=== PATIENT | male | born 1955 | race Caucasian/White ===

== ENCOUNTER 2018-09-19 09:24 | Observation (INO) | payer OTHER ==
--- OUTSIDE RECORDS SUMMARY | 2018-09-19 09:52 | XMS REPORT ---
:1955 Author Organization [facility] Address [address] [place] [address] [address] [place] [address] Care Team Providers Name Role Phone Unavailable Unavailable Unavailable Problems This patient has no known problems. Allergies, Adverse Reactions, Alerts This patient has no known allergies or adverse reactions. Medications This patient has no known medications.
[2018-09-19 10:08] LABS: Absolute Lymphocytes (CBC) 1.1 K/uL (0.7-4.9); Basophils % 0.2 % (0-1.3); Lymphocytes % 6.6 % (15.3-44.8); MPV 9.3 fL (7.6-11.3); Monocytes % 3.9 % (3.3-12.3); RBC Red Blood Cell Count 6.25 M/uL (4.33-5.43)
[2018-09-19 10:24] LABS: ALT/SGPT 58 U/L (12-78); AST/SGOT 37 U/L (15-37); Albumin 5.3 g/dL (3.4-5.0); Alkaline Phosphatase 126 U/L (45-117); BUN Blood Urea Nitrogen 21 mg/dL (7-18); Bicarbonate 31 mmol/L (21-32); Bilirubin Total 1.1 mg/dL (0.2-1.0); Glucose Level 126 mg/dL (74-106); Lipase 102 U/L (73-393); Magnesium 2.8 mg/dL (1.8-2.4); NT PRO-BNP 242 pg/mL (<125); Potassium 3.6 mmol/L (3.5-5.1); Protein, Total 10.8 g/dL (6.4-8.2); Sodium Level 139 mmol/L (136-145); Troponin (Emerg Dept Use Only) < 0.02 ng/mL (0.0-0.045)
[2018-09-19 11:25] LABS: Blood Morphology Comment NOT SEEN (NOT SEEN); Platelet Estimate ADEQ; Urine White Blood Cell Casts OK
--- NOTE | 2018-09-19 11:49 | RAD REPORT ---
EXAM DESCRIPTION: RAD - Chest Single View - 09/19/2018 11:30 am CLINICAL HISTORY: Cough, shortness of breath COMPARISON: CT imaging August 2010 TECHNIQUE: AP portable chest image was obtained 1124 hours . FINDINGS: Fibrotic lung changes are present. Moderately large bolus Kathi present in the left apex s imilar to the 2011 study. Focal scarring in the right apex is present. Patient has a right-sided Port -A-Cath in place. No focal infiltrate, mass or failure finding. Heart and vasculature are normal. No measurable pleural effusion and no pneumothorax. No acute bony abnormality seen. No acute aortic findings suspected. IMPRESSION: Fibrotic and obstructive lung changes are present. No acute cardiopulmonary finding seen.
--- NOTE | 2018-09-19 12:49 | EKG ---
Test Date: 2018-09-19 Test Time: 09:35:31 Clam Bed Laborer: JENNIFER MEASUREMENT RESULTS: Intervals: Rate: 112 MI: 148 QRSD: 90 QT: 326 QTc: 444 [place]: P: 79 MI: 148 QRS: 80 T: 76 INTERPRETIVE STATEMENTS: Sinus tachycardia Otherwise normal ECG No previous ECG available for comparison Electronically Signed On 09-19-18 12:47:57 CDT by Alexis Holland
[2018-09-19] MEDS ORDERED: ONDANSETRON 4 MG/2 ML VIAL ONE ×2 (13:08→14:52)
--- NOTE | 2018-09-19 14:04 | RAD REPORT ---
EXAM DESCRIPTION: CT - Chest For Pe Angio - 09/19/2018 1:28 pm CLINICAL HISTORY: Progressive shortness of breath, metastatic lung carcinoma, dyspnea COMPARISON: Portable chest September 19, CT chest trauma gram August 2010 TECHNIQUE: Dynamically enhanced 3 mm thick images of the chest were obtained during administration o f approximately 150mL Isovue 370 IV contrast. Coronal and oblique MIP reconstruction images were gene rated and reviewed. Exam utilizes a protocol to evaluate the pulmonary arterial tree. All CT scans are performed using dose optimization technique as appropriate and may include automated exposure control or mA/KV adjustment according to patient size. FINDINGS: No pulmonary emboli are identified. The aorta as imaged shows no acute or suspicious finding. No pericardial thickening or effusion. No acute infiltrate. Patient has prominent emphysema changes present. There is a large 9 centimeter d iameter air-filled bullous cavity in the left apex. There are numerous additional subpleural bulla an d bleb in the mid and upper lung arreaga. No pneumothorax or pleural effusion. An 8 mm nodule is prese nt in the posterior gutter on the left. Small calcified nodule is seen in the lateral lower left lung field. Focal pleural abutting 2.7 centimeter spiculated mass in the posterior right apex is present. This may be residual or remnant tumor given the history of lung carcinoma. No recent comparison avai lable. There is a small 8 mm spiculated density in the right upper lung field (image 42/104). No mediastinal or hilar suspicious masses. No chest wall masses or abnormal axillary lymphadenopathy. No pericardial thickening or effusion. No vertebral body compression fracture. Scattered areas of sclerotic change present in the midthoraci c spine. IMPRESSION: No pulmonary emboli identified. Approximately 2.7 cm spiculated mass in the posterior right apex. No recent comparison is available. This may be residual or remnant tumor given the provided history of lung cancer. Extensive underlying emphysema changes present. Numerous bullae and blebs are seen in the mid and upp er lung arreaga including 9 centimeter cystic bullous cavity in the left apex. Few small lung parenchymal mass densities are present the can be monitored on subsequent imaging. The se are not likely of acute clinical significance.
[2018-09-19] MEDS ORDERED: CEFTRIAXONE/SWI 1gm 1 GM/10 ML SYR ONE (14:41)
--- NOTE | 2018-09-19 14:45 | EDPHYS ---
Physician Documentation [facility] Name: Clive Delcid Age: 62 yrs Sex: Male : 1955 Arrival Date: 09/19/2018 Time: 09:26 Bed 7 Private MD: ED Physician Cl Jarvis HPI: 09/19 09:39 This 62 yrs old Male presents to ER via EMS with complaints of Shortness Of ps1 Breath, General Weakness. 09:39 patient has a history of lung CA with mets to brain. BIBEMS for SHAINA. Appears to be NAD ps1 at this time. Previous chemo/rads, now palliative. Had decrease in morphine administration over last couple of months. Family member states that he has had more incidents of discomfort with breathing since decrease. Has ONC follow up in 3 days. No fever. Has increased fatigue.. Historical: - Allergies: 09:30 No Known Allergies; sg - PMHx: 09:30 Lung Cancer; sg 09:37 Hepatitis; sg - Immunization history:: Adult Immunizations up to date. - Social history:: Smoking status: Patient/guardian denies using tobacco, but has a distant history of tobacco abuse. - Ebola Screening: : Patient negative for fever greater than or equal to 101.5 degrees Fahrenheit, and additional compatible Ebola Virus Disease symptoms Patient denies exposure to infectious person Patient denies travel to an Ebola-affected area in the 21 days before illness onset No symptoms or risks identified at this time. ROS: 09:39 Constitutional: Negative for fever, chills, and weight loss, Eyes: Negative for injury, ps1 pain, redness, and discharge, Abdomen/GI: Negative for abdominal pain, nausea, vomiting, diarrhea, and constipation, Skin: Negative for injury, rash, and discoloration, Neuro: Negative for headache, weakness, numbness, tingling, and seizure, Psych: Negative for depression, anxiety, suicide ideation, homicidal ideation, and hallucinations. 09:39 Cardiovascular: Negative for chest pain, palpitations. 09:39 Respiratory: Positive for cough, dyspnea on exertion, shortness of breath. Exam: 09:39 Constitutional: This is a well developed, well nourished patient who is awake, alert, ps1 and in no acute distress. Head/Face: Normocephalic, atraumatic. Chest/axilla: Normal chest wall appearance and motion. Nontender with no deformity. No lesions are appreciated. Cardiovascular: Regular rate and rhythm. No gallops, murmurs, or rubs. Normal PMI, no JVD. No pulse deficits. Respiratory: Lungs have equal breath sounds bilaterally, clear to auscultation and percussion. No rales, rhonchi or wheezes noted. No increased work of breathing, no retractions or nasal flaring. Abdomen/GI: Soft, non-tender, with normal bowel sounds. No distension or tympany. No guarding or rebound. No evidence of tenderness throughout. MS/ Extremity: Pulses equal, no cyanosis. Neurovascular intact. Full, normal range of motion. Neuro: Awake and alert, GCS 15, oriented to person, place, time, and situation. Cranial nerves II-XII grossly intact. Sensory grossly intact. Psych: Awake, alert, with orientation to person, place and time. Behavior, mood, and affect are within normal limits. Vital Signs: 09:28 BP 103 / 64; Pulse 101; Resp 18; Temp 97.9; Pulse Ox 94% on R/A; Pain 0/10; sg 10:30 BP 128 / 87; Pulse 103; Resp 18; Pulse Ox 98% ; sv 12:07 BP 103 / 64; Pulse 106; Resp 18; Pulse Ox 96% ; sv 13:00 BP 112 / 72; Pulse 105; Resp 19; Pulse Ox 96% ; sv 14:00 BP 162 / 99; Pulse 99; Resp 16; Pulse Ox 94% ; sv 15:00 BP 125 / 92; Pulse 112; Resp 18; Pulse Ox 97% ; sv 16:18 BP 108 / 59; Pulse 111; Resp 16; Pulse Ox 97% ; sv 17:56 BP 144 / 98; Pulse 105; Resp 16; Pulse Ox 98% ; sv MDM: 10:29 Patient medically screened. 09/19 09:38 Order name: Blood Culture Adult (2) 09/19 09:38 Order name: CBC with Diff 09/19 09:38 Order name: Lipase 09/19 09:38 Order name: Magnesium; Complete Time: 11:12 09/19 09:38 Order name: NT PRO-BNP; Complete Time: 11:12 09/19 09:38 Order name: Troponin (emerg Dept Use Only); Complete Time: 11:12 09/19 09:38 Order name: CMP; Complete Time: 11:12 ps1 09/19 09:39 Order name: Blood Culture EDMS 09/19 09:40 Order name: CBC with Automated Diff; Complete Time: 12:14 EDMS 09/19 09:40 Order name: Lipase; Complete Time: 11:12 EDMS 09/19 11:26 Order name: CBC Smear Scan; Complete Time: 12:14 EDMS 09/19 14:17 Order name: Lactate ps1 09/19 14:17 Order name: Procalcitonin; Complete Time: 16:23 ps1 09/19 14:18 Order name: Lactate; Complete Time: 16:23 EDMS 09/19 09:36 Order name: EKG; Complete Time: 09:36 sg 09/19 09:38 Order name: Cardiac monitoring; Complete Time: 09:42 ps1 09/19 09:38 Order name: EKG - Nurse/Tech; Complete Time: 09:42 ps1 09/19 09:38 Order name: IV Saline Lock; Complete Time: 09:59 ps1 09/19 09:38 Order name: Labs collected and sent; Complete Time: 09:59 ps1 09/19 09:38 Order name: O2 Per Protocol; Complete Time: 09:42 ps1 09/19 09:38 Order name: O2 Sat Monitoring; Complete Time: 09:42 ps1 09/19 11:14 Order name: CXR XRAY; Complete Time: 12:14 ps1 09/19 13:06 Order name: CT Chest For PE Angio; Complete Time: 14:11 ps1 09/19 18:07 Order name: Lactate Sepsis 2 HR Follow-up; Complete Time: 18:18 EDMS Administered Medications: 12:14 Drug: DuoNeb (3:1) (2.5 mg - 0.5 mg) 3 ml Route: Nebulizer; sv 13:08 Follow up: Response: No adverse reaction sv 12:14 Drug: SOLU-Medrol 125 mg Route: IVP; Site: right forearm; sv 13:08 Follow up: Response: No adverse reaction sv 13:08 Drug: Zofran 4 mg Route: IVP; Site: right forearm; sv 13:30 Follow up: Response: No adverse reaction sv 14:35 Drug: Rocephin - (cefTRIAXone) 1 grams Route: IVPB; Infused Over: 30 mins; Site: right sv forearm; 14:37 Follow up: Response: No adverse reaction; IV Status: Completed infusion; IV Intake: 10mlsv 14:44 Drug: Zofran 4 mg Route: IVP; Site: right forearm; sv 15:00 Follow up: Response: No adverse reaction sv Disposition: 09/19/18 14:45 Hospitalization ordered by Huang Hurst for Observation. Preliminary diagnosis are Shortness of breath\E\, COPD exacerbation, Lung CA, Dehydration. - Bed requested for Telemetry/MedSurg (observation). - Status is Observation. sv - Condition is Stable. - Problem is an acute exacerbation. - Symptoms have improved. UTI on Admission? No Signatures: Dispatcher [employer] EDMS Angi Blount RN Felicity Juan RN RN dw Gay, Steven, RN RN sg Singer, Phillip, MD MD ps1 Corrections: (The following items were deleted from the chart) 17:49 14:45 Hospitalization Ordered by Huang Hurst DO for Observation. Preliminary diagnosis is Shortness of breath\E\; COPD exacerbation; Lung CA; Dehydration. Bed requested for Telemetry/MedSurg (observation). Status is Observation. Condition is Stable. Problem is an acute exacerbation. Symptoms have improved. UTI on Admission? No. ps1 18:37 17:49 09/19/2018 14:45 Hospitalization Ordered by Huang Hurst DO for Observation. sv Preliminary diagnosis is Shortness of breath\E\; COPD exacerbation; Lung CA; Dehydration. Bed requested for Telemetry/MedSurg (observation). Status is Observation. Condition is Stable. Problem is an acute exacerbation. Symptoms have improved. UTI on Admission? No. dw
--- NOTE | 2018-09-19 14:45 | ER ---
Nurse's Notes [facility] Name: Clive Delcid Age: 62 yrs Sex: Male : 1955 Arrival Date: 09/19/2018 Time: 09:26 Bed 7 Private MD: Diagnosis: Shortness of breath\E\;COPD exacerbation;Lung CA;Dehydration Presentation: 09/19 09:26 Presenting complaint: EMS states: pt daughter called for pt having increased shortness sg of breath, reports having a hx of lung cancer with mets throughout the body. pt daughter also reports the pt being weak for the last couple of days, pt is currently on hospice. denies N/V/D/Fever at this time. Transition of care: patient was not received from another setting of care. Onset of symptoms was September 19, 2018. Risk Assessment: Do you want to hurt yourself or someone else? Patient reports no desire to harm self or others. Initial Sepsis Screen: Does the patient meet any 2 criteria? HR > 90 bpm. Does the patient have a suspected source of infection? No. Patient's initial sepsis screen is negative. Care prior to arrival: Glucose check: 124. 09:26 Method Of Arrival: EMS: [facility] sg 09:26 Acuity: KIRBY 3 sg Historical: - Allergies: 09:30 No Known Allergies; sg - PMHx: 09:30 Lung Cancer; sg 09:37 Hepatitis; sg - Immunization history:: Adult Immunizations up to date. - Social history:: Smoking status: Patient/guardian denies using tobacco, but has a distant history of tobacco abuse. - Ebola Screening: : Patient negative for fever greater than or equal to 101.5 degrees Fahrenheit, and additional compatible Ebola Virus Disease symptoms Patient denies exposure to infectious person Patient denies travel to an Ebola-affected area in the 21 days before illness onset No symptoms or risks identified at this time. Screenin:35 Abuse screen: Denies threats or abuse. Denies injuries from another. Nutritional sg screening: No deficits noted. Tuberculosis screening: No symptoms or risk factors identified. Never had TB. Fall Risk None identified. Assessment: 09:38 General: Appears in no apparent distress. slender, well groomed, well developed, well sg nourished, Behavior is calm, cooperative, appropriate for age. Pain: Complains of pain in abdomen, body aches Quality of pain is described as aching. Neuro: Level of Consciousness is awake, alert, obeys commands, Oriented to person, place, time, Hot Air Furnace Installer Repairer are equal bilaterally Moves all extremities. Speech is normal, Facial symmetry appears normal. Cardiovascular: Heart tones S1 S2 present Capillary refill is brisk in bilateral fingers Patient's skin is warm and dry. Chest pain is denied. Cardiovascular: Rhythm is sinus tachycardia. Respiratory: Airway is patent Respiratory effort is even, unlabored, Respiratory pattern is regular, symmetrical, Breath sounds are coarse. GI: Abdomen is round non-distended, Reports abd pain. : No signs and/or symptoms were reported regarding the genitourinary system. EENT: No signs and/or symptoms were reported regarding the EENT system. Derm: Skin is normal, Skin temperature is warm. Musculoskeletal: No signs and/or symptoms reported regarding the musculoskeletal system. 09:38 Reassessment: a port a cath is noted in the anterior chest wall, site appears clean and sg dry with no drainage noted at this time. 12:14 Reassessment: Patient appears in no apparent distress at this time. No changes from sv previously documented assessment. Patient and/or family updated on plan of care and expected duration. Pain level reassessed. Patient is alert, oriented x 3, equal unlabored respirations, skin warm/dry/pink. 13:05 Reassessment: Patient appears in no apparent distress at this time. No changes from sv previously documented assessment. Patient and/or family updated on plan of care and expected duration. Pain level reassessed. Patient is alert, oriented x 3, equal unlabored respirations, skin warm/dry/pink. GI: Pt is actively vomiting bile, Reports nausea. 14:35 Reassessment: Patient appears in no apparent distress at this time. No changes from sv previously documented assessment. Patient and/or family updated on plan of care and expected duration. Pain level reassessed. Patient is alert, oriented x 3, equal unlabored respirations, skin warm/dry/pink. GI: Pt is actively vomiting bile, Reports nausea. 14:45 Reassessment: Patient appears in no apparent distress at this time. No changes from sv previously documented assessment. Patient and/or family updated on plan of care and expected duration. Pain level reassessed. Patient is alert, oriented x 3, equal unlabored respirations, skin warm/dry/pink. Dr Hurst at the bedside. Vital Signs: 09:28 BP 103 / 64; Pulse 101; Resp 18; Temp 97.9; Pulse Ox 94% on R/A; Pain 0/10; sg 10:30 BP 128 / 87; Pulse 103; Resp 18; Pulse Ox 98% ; sv 12:07 BP 103 / 64; Pulse 106; Resp 18; Pulse Ox 96% ; sv 13:00 BP 112 / 72; Pulse 105; Resp 19; Pulse Ox 96% ; sv 14:00 BP 162 / 99; Pulse 99; Resp 16; Pulse Ox 94% ; sv 15:00 BP 125 / 92; Pulse 112; Resp 18; Pulse Ox 97% ; sv 16:18 BP 108 / 59; Pulse 111; Resp 16; Pulse Ox 97% ; sv 17:56 BP 144 / 98; Pulse 105; Resp 16; Pulse Ox 98% ; sv ED Course: 09:26 Patient arrived in ED. sg 09:28 Triage completed. sg 09:28 Arm band placed on. sg 09:29 Cl Jarvis MD is Attending Physician. ps1 09:35 Patient has correct armband on for positive identification. Bed in low position. Call sg light in reach. Side rails up X2. Pulse ox on. NIBP on. Warm blanket given. Head of bed elevated. 09:36 Pepe Livingston, RN is Primary Nurse. sg 09:40 EKG done, by chemical research technician. reviewed by Cl Jarvis MD. at1 09:57 Initial lab(s) drawn, by me, sent to lab. First set of blood cultures drawn. Inserted ms saline lock: 20 gauge in right forearm, using aseptic technique. Blood collected. 11:30 X-ray completed. Portable x-ray completed in exam room. Patient tolerated procedure sw well. 11:31 CXR XRAY In Process Unspecified. EDMS 12:06 Second set of blood cultures drawn by me. ms 12:16 Blood Culture Adult (2) Sent. sv 12:16 CBC with Diff Sent. sv 12:16 Lipase Sent. sv 13:28 CT Chest For PE Angio In Process Unspecified. EDMS 14:35 Initial lab(s) drawn, by me, sent to lab. sv 14:36 Primary Nurse role handed off by Pepe Livingston, RN sv 14:36 Angi Blount, ANITA is Primary Nurse. sv 14:44 Huang Hurst DO is Hospitalizing Provider. ps1 14:46 Lactate Sent. sv 15:31 Assisted to bedside commode. sg 18:07 Notified ED physician of a critical lab result(s). Lactate 4.9. ak1 18:19 No provider procedures requiring assistance completed. Patient admitted, IV remains in sv place. intact. 19:00 Primary Nurse role handed off by Angi Blount RN sv Administered Medications: 12:14 Drug: DuoNeb (3:1) (2.5 mg - 0.5 mg) 3 ml Route: Nebulizer; sv 13:08 Follow up: Response: No adverse reaction sv 12:14 Drug: SOLU-Medrol 125 mg Route: IVP; Site: right forearm; sv 13:08 Follow up: Response: No adverse reaction sv 13:08 Drug: Zofran 4 mg Route: IVP; Site: right forearm; sv 13:30 Follow up: Response: No adverse reaction sv 14:35 Drug: Rocephin - (cefTRIAXone) 1 grams Route: IVPB; Infused Over: 30 mins; Site: right sv forearm; 14:37 Follow up: Response: No adverse reaction; IV Status: Completed infusion; IV Intake: 10mlsv 14:44 Drug: Zofran 4 mg Route: IVP; Site: right forearm; sv 15:00 Follow up: Response: No adverse reaction sv Intake: 14:37 IV: 10ml; Total: 10ml. sv Outcome: 14:45 Decision to Hospitalize by Provider. ps1 18:20 Admitted to Tele accompanied by tech, via wheelchair, room 209, Report called to jose Thompson RN 18:20 Condition: stable 18:20 Instructed on the need for admit. 18:37 Patient left the ED. Signatures: Dispatcher [employer] EDMS Angi Blount, Pepe Darling RN, RN Charlotte Soria ms, Amanda, wrist liner EKG Tat1 Bernie Smith, RN RN ak1 Neeta Valentin Phillip, MD MD ps1
--- NOTE | 2018-09-19 15:12 | P.HP ---
Certification for Inpatient Patient admitted to: Observation With expected LOS: <2 Midnights Patient will require the following post-hospital care: None Practitioner: I am a practitioner with admitting privileges, knowledge of patient current condition, hospital course, and medical plan of care. Services: Services provided to patient in accordance with Admission requirements found in Title 42 Section 412.3 of the Code of Federal Regulations Patient History Date of Service: 09/19/18 Primary Care Provider: Dr. Pastor; Palliative-Dr. Cardenas; Pain-Dr. Smith; Onco-Dr. Arguello Reason for admission: Fatigue, diarrhea History of Present Illness: 62-year-old male presented to emergency room with increased fatigue and diarrhea. Patient with underlying non small-cell lung cancer, chronic pain, hypothyroidism , and history of TIA. Patient had been out site recently. Patient was noticing increasing fatigue and diarrhea today. Mild shortness of breath was noted. He denied any fever, chills. Patient is seen at [facility] for all his care. He is seen by palliation DrArnulfo, Oncology and chronic pain management. In the ER patient was evaluated. White count elevated at 16. Patient BMP revealed acute renal injury. CT scan showed unchanged mass to the lung, several bulli, and no evidence of pulmonary embolism or pneumonia. Patient was given IV fluids in the emergency room. Patient was admitted for observation. When I saw the patient the ER, he appeared dehydrated. He was without any significant shortness of breath, fever, chills, chest pain. Patient reported that he had been outside mowing the grass. Daughter present at bedside. She reports that his pain doctor has been adjusting his chronic pain medication- morphine. Patient has received chemotherapy, immunotherapy and radiation in the past. He is being followed by Oncology closely. He apparently ran out of his chronic pain medication recently. He is a follow up in the next 2 days. Home medications list reviewed: Yes - Past Medical/Surgical History Diabetic: No -: Non-small cell lung cancer with mets -: COPD -: History TIA -: GERD -: Chronic pain -: Hypothyroidism -: Tobacco abuse -: Alcohol use Past Surgical History: Reviewed- Non-Contributory Psychosocial/ Personal History: Patient lives at home. - Family History Family History: Reviewed- Non-Contributory - Social History Smoking Status: Heavy Tobacco smoker (>10 cigarettes/day) Counseled patient to stop smoking for: less than 10 minutes Smoking therapy provided: Yes Patient receptive to therapy: Yes Alcohol use: Yes CD- Drugs: No Caffeine use: Yes Place of Residence: Home Review of Systems General: Weakness, Malaise, As per HPI Eyes: Unremarkable ENT: Unremarkable Respiratory: Shortness of Breath, As per HPI Cardiovascular: Unremarkable Gastrointestinal: Diarrhea, As per HPI Genitourinary: Unremarkable Musculoskeletal: Unremarkable Integumentary: Unremarkable Neurological: Unremarkable Lymphatics: Unremarkable Physical Examination - Physical Exam General: Alert, In no apparent distress, Oriented x3, Cooperative, Cachectic, Disheveled HEENT: Atraumatic, Normocephalic, Other Neck: Supple, No Thyromegaly Respiratory: Expiratory wheezes (Bilateral) Cardiovascular: Normal pulses, Regular rate/rhythm Gastrointestinal: Normal bowel sounds, Soft and benign, Non-distended, No tenderness, No masses, No rebound, No guarding Musculoskeletal: No erythema, No tenderness, No warmth Integumentary: No tenderness/swelling, No erythema, No warmth, No cyanosis Neurological: Normal speech, Normal strength at 5/5 x4 extr, Normal tone, Normal affect - Studies Laboratory Data (last 24 hrs) 09/19/18 09:56: Sodium 139, Potassium 3.6, BUN 21 H, Creatinine 1.90 H, Glucose 126 H, Magnesium 2.8 H, Total Bilirubin 1.1 H, AST 37, ALT 58, Alkaline Phosphatase 126 H, Lipase 102 09/19/18 09:56: WBC 16.1 H, Hgb 18.8 H, Hct 57.0 H, Plt Count 326 Assessment and Plan - Plan Impression: Fatigue, shortness of breath likely mild COPD exacerbation complicated with non- small-cell lung cancer Acute renal injury with dehydration Chronic pain Hypothyroidism GERD History TIA Plan: Fatigue, shortness of breath likely mild COPD exacerbation complicated with non- small-cell lung cancer: Patient will be admitted for observation. Will start oral steroid for COPD exacerbation.. Patient not taking any inhalers at home. Will start COPD medication-Brovana/albuterol/Atrovent. COPD medication will need to be continued at home at discharge. Room-air saturations within normal range. Will monitor this closely. Recheck chest x-ray tomorrow. Patient is seen by palliation along with oncology. Patient also to gets morphine for chronic pain. Patient recently ran out of medication. Follow up with pain management doctor this coming Wednesday. Anticipate discharge tomorrow with IV fluid hydration. Patient will need follow up with pain management on Wednesday. Patient will need to decrease activities at home. Acute renal injury with dehydration: Will provide IV fluids. Recheck lab tomorrow. Encourage oral intake. Chronic pain: Will provide medication for pain. Restart some of his pain medication. Patient has appointment with pain management on Wednesday. Hypothyroidism: Restart his medication GERD: Restart his patient History TIA: Will start DVT this-Lovenox Discharge Plan: Home Plan to discharge in: 24 Hours - Advance Directives Does patient have a Living Will: No Does patient have a Durable POA for Healthcare: No - Code Status/Comfort Care Code Status Assessed: Yes (Patient is full code) Time Spent Managing Pts Care (In Minutes): 55
[2018-09-19] MEDS ORDERED: IPRATROPIUM BROM 0.5MG/2.5ML NEB PRN (18:43)
[2018-09-19] MEDS ORDERED: TRAMADOL HCL 50 MG TAB PO PRN (18:43)
[2018-09-19] MEDS ORDERED: ACETAMINOPHEN 500 MG TAB PO PRN (18:43)
[2018-09-19] MEDS ORDERED: ALBUTEROL 2.5 MG/3 ML NEB SOL NEB PRN (18:43)
[2018-09-19] MEDS ORDERED: NA CHLORIDE 0.9% 1,000 ML IV SCH (18:43)
[2018-09-19] MEDS: ARFORMOTEROL TARTRATE 15 MCG/2 ML VIAL.NEB NEB SCH (20:00)
[2018-09-19] MEDS ORDERED: NA CHLORIDE 0.9% 500 ML IV ONE (20:43)
[2018-09-19] MEDS ORDERED: HYDRALAZINE HCL 20 MG/ML VIAL IV PRN (21:02)
[2018-09-19] MEDS: clonazePAM 0.5 MG TAB PO PRN (21:50)
[2018-09-19] MEDS: predniSONE 10 MG TAB PO SCH (21:50)
[2018-09-19] MEDS: HYDROCODONE/APAP 7.5/325 MG TAB PO PRN (22:19)
[2018-09-20] MEDS: MORPHINE 2 MG/ML SYR IV PRN ×2 (01:04→12:55)
[2018-09-20] MEDS: ONDANSETRON 4 MG/2 ML VIAL IV PRN ×2 (02:01→12:55)
[2018-09-20 06:13] LABS: Absolute Lymphocytes (CBC) 1.2 K/uL (0.7-4.9); Basophils % 0.1 % (0-1.3); Hematocrit 51.1 % (39.6-49.0); Lymphocytes % 6.3 % (15.3-44.8); MPV 9.4 fL (7.6-11.3); Monocytes % 4.1 % (3.3-12.3); RBC Red Blood Cell Count 5.64 M/uL (4.33-5.43)
[2018-09-20 06:23] LABS: Magnesium 2.5 mg/dL (1.8-2.4); Potassium 3.2 mmol/L (3.5-5.1)
[2018-09-20] MEDS ORDERED: PANTOPRAZOLE 40MG TABLET PO SCH (06:30)
[2018-09-20] MEDS ORDERED: LEVOTHYROXINE SOD 0.05 MG TABLET PO SCH (06:30)
[2018-09-20] MEDS ORDERED: POTASSIUM CL SA 10 MEQ TAB PO ONE (06:35)
[2018-09-20] MEDS ORDERED: METOPROLOL TAR 25 MG TAB PO SCH (08:00)
[2018-09-20] MEDS ORDERED: NA CHLORIDE 0.9% 1,000 ML IV SCH (08:00)
[2018-09-20] MEDS: ARFORMOTEROL TARTRATE 15 MCG/2 ML VIAL.NEB NEB SCH (08:00)
--- NOTE | 2018-09-20 08:13 | RAD REPORT ---
EXAM DESCRIPTION: Ngoc Polo And Nano (2 Views)09/20/2018 5:53 am CLINICAL HISTORY: Cough COMPARISON: September 19, 2018 FINDINGS: Right apical opacity is without obvious change. Left upper lobe bulla noted. Lungs are hyperaerated. Remainder of the lungs appear clear of acute infiltrate. Heart size is small perhaps secondary to dehydration A central venous catheter has its tip in the superior vena cava IMPRESSION: No change since the prior exam
[2018-09-20 08:14] LABS: Blood Morphology Comment NOT SEEN (NOT SEEN); Platelet Estimate ADEQ
[2018-09-20] MEDS: ENOXAPARIN 40 MG/0.4 ML SQ SCH ×3 (08:24→08:37)
[2018-09-20] MEDS: HYDROCODONE/APAP 7.5/325 MG TAB PO PRN (08:24)
[2018-09-20] MEDS: clonazePAM 0.5 MG TAB PO PRN (08:27)
[2018-09-20] MEDS: predniSONE 10 MG TAB PO SCH (08:27)
[2018-09-20] MEDS ORDERED: NICOTINE 21 MG/PAT TD SCH (09:00)
[2018-09-20] MEDS ORDERED: PREGABALIN 150 MG CAP PO SCH (09:00)
--- NOTE | 2018-09-20 11:11 | P.DS ---
Admission Date: 09/19/18 Discharge Date: 09/20/18 Primary Care Provider: Dr. Pastor; Palliative-Dr. Cardenas; Pain-Dr. Smith; Onco-Dr. Arguello Disposition: ROUTINE DISCHARGE Discharge Condition: GOOD Reason for Admission: Fatigue, diarrhea Consultations: none Procedures: Follow up CXR: FINDINGS: Right apical opacity is without obvious change. Left upper lobe bulla noted. Lungs are hyperaerated. Remainder of the lungs appear clear of acute infiltrate. Heart size is small perhaps secondary to dehydration A central venous catheter has its tip in the superior vena cava IMPRESSION: No change since the prior exam CT Scan: FINDINGS: No pulmonary emboli are identified. The aorta as imaged shows no acute or suspicious finding. No pericardial thickening or effusion. No acute infiltrate. Patient has prominent emphysema changes present. There is a large 9 centimeter diameter air-filled bullous cavity in the left apex. There are numerous additional subpleural bulla and bleb in the mid and upper lung arreaga. No pneumothorax or pleural effusion. An 8 mm nodule is present in the posterior gutter on the left. Small calcified nodule is seen in the lateral lower left lung field. Focal pleural abutting 2.7 centimeter spiculated mass in the posterior right apex is present. This may be residual or remnant tumor given the history of lung carcinoma. No recent comparison available. There is a small 8 mm spiculated density in the right upper lung field (image 42/104). No mediastinal or hilar suspicious masses. No chest wall masses or abnormal axillary lymphadenopathy. No pericardial thickening or effusion. No vertebral body compression fracture. Scattered areas of sclerotic change present in the midthoracic spine. IMPRESSION: No pulmonary emboli identified. Approximately 2.7 cm spiculated mass in the posterior right apex. No recent comparison is available. This may be residual or remnant tumor given the provided history of lung cancer. Extensive underlying emphysema changes present. Numerous bullae and blebs are seen in the mid and upper lung arreaga including 9 centimeter cystic bullous cavity in the left apex. Few small lung parenchymal mass densities are present the can be monitored on subsequent imaging. These are not likely of acute clinical significance. Medical Problem List: Fatigue, shortness of breath likely mild COPD exacerbation complicated with non- small-cell lung cancer, with known 2.7 cm spiculated mass to the posterior right apex and extensive COPD changes Acute renal injury with dehydration Chronic pain Hypothyroidism GERD History TIA HTN Brief History of Present Illness: 62-year-old male presented to emergency room with increased fatigue and diarrhea. Patient with underlying non small-cell lung cancer, chronic pain, hypothyroidism , and history of TIA. Patient had been out site recently. Patient was noticing increasing fatigue and diarrhea today. Mild shortness of breath was noted. He denied any fever, chills. Patient is seen at [facility] for all his care. He is seen by palliation DrArnulfo, Oncology and chronic pain management. In the ER patient was evaluated. White count elevated at 16. Patient BMP revealed acute renal injury. CT scan showed unchanged mass to the lung, several bulli, and no evidence of pulmonary embolism or pneumonia. Patient was given IV fluids in the emergency room. Patient was admitted for observation. When I saw the patient the ER, he appeared dehydrated. He was without any significant shortness of breath, fever, chills, chest pain. Patient reported that he had been outside mowing the grass. Daughter present at bedside. She reports that his pain doctor has been adjusting his chronic pain medication- morphine. Patient has received chemotherapy, immunotherapy and radiation in the past. He is being followed by Oncology closely. He apparently ran out of his chronic pain medication recently. He is a follow up in the next 2 days. Hospital Course: Patient presented with fatigue, shortness of breath. Patient evaluated in the emergency room. Patient found with mild COPD exacerbation and acute renal injury with dehydration. Patient with underlying non-small cell lung cancer with known 2.7 cm spiculated mass to the posterior right apex. Patient has received chemotherapy in the past. He has been followed at [facility]. Patient also with extensive COPD changes. Patient was admitted for observation. Patient received IV fluids with improvement of renal function. Room-air saturations within normal range. No evidence of infectious process noted. At discharge his without any significant shortness of breath. Patient will continue with prednisone 10 mg 1 pill twice daily for 5 days then 1 p.o. once daily for 5 days. For his COPD, I will recommend to continue with COPD medication-Advair 1 puff twice daily and pro air 2 puffs 3 times a day as needed for shortness of breath. Patient plans to follow up with his oncologist tomorrow for further monitoring of his lung cancer. Patient may benefit with pulmonology follow up to further monitor his COPD. Patient with acute renal injury likely from dehydration. Encourage oral intake. Renal function improved with IV fluids. Recommend to recheck lab-BMP in 1 week to monitor his progress. Encourage oral intake at discharge. Patient with chronic pain. Patient seen by pain management. Patient may continue with his current medication. Patient plans to follow up with pain management to further monitor and adjust his medication. Patient with hypothyroidism. At discharge to continue with his medication. Patient with GERD. Patient will continue with his medication. Patient with history of TIA. Patient may continue with aspirin 81 mg daily. Patient had elevated blood pressure suspect hypertension. Metoprolol 2.5 mg 1 pill twice daily was added. Blood pressure better controlled with medication. At discharge patient will continue with metoprolol 12.5 mg twice daily. Recommend to maintain blood pressures was 150/80. Further adjustment to be done by his PCP. Patient may need to hold metoprolol if blood pressure less than 120 systolic or heart rate less than 55. Vital Signs/Physical Exam: Temp Pulse Resp BP Pulse Ox 98.2 F 104 H 19 156/80 H 97 09/20/18 08:00 09/20/18 08:30 09/20/18 08:00 09/20/18 08:30 09/20/18 08:00 General: Alert, In no apparent distress, Oriented x3, Cooperative HEENT: Atraumatic Neck: Supple Respiratory: Clear to auscultation bilaterally, Normal air movement Cardiovascular: Normal pulses, Regular rate/rhythm Gastrointestinal: Normal bowel sounds, Soft and benign, Non-distended, No tenderness, No masses, No rebound, No guarding Musculoskeletal: No erythema, No tenderness, No warmth Integumentary: No tenderness/swelling, No erythema, No warmth, No cyanosis Neurological: Normal speech, Normal strength at 5/5 x4 extr, Normal tone, Normal affect Laboratory Data at Discharge: WBC 18.2 K/uL (4.3-10.9) H 09/20/18 05:30 Hgb 17.3 g/dL (13.6-17.9) 09/20/18 05:30 Hct 51.1 % (39.6-49.0) H 09/20/18 05:30 Plt Count 288 K/uL (152-406) 09/20/18 05:30 Sodium 137 mmol/L (136-145) 09/20/18 05:30 Potassium 3.2 mmol/L (3.5-5.1) L 09/20/18 05:30 BUN 40 mg/dL (7-18) H 09/20/18 05:30 Creatinine 1.69 mg/dL (0.55-1.3) H 09/20/18 05:30 Glucose 131 mg/dL (74-106) H 09/20/18 05:30 Magnesium 2.5 mg/dL (1.8-2.4) H 09/20/18 05:30 Total Bilirubin 1.1 mg/dL (0.2-1.0) H 09/19/18 09:56 AST 37 U/L (15-37) 09/19/18 09:56 ALT 58 U/L (12-78) 09/19/18 09:56 Alkaline Phosphatase 126 U/L (45-117) H 09/19/18 09:56 Lipase 102 U/L (73-393) 09/19/18 09:56 Home Medications: Albuterol Sulfate [Proair Hfa] 2 puff IH TID PRN #1 hfa.aer.ad 09/20/18 Fluticasone/Salmeterol [Advair 250-50 Diskus] 1 each IH BID #1 disk.w.dev Metoprolol Tartrate [Lopressor*] 12.5 mg PO BID #60 tab 09/20/18 predniSONE [Deltasone*] 10 mg PO SEECOM #15 tab 09/20/18 New Medications: Albuterol Sulfate [Proair Hfa] 2 puff IH TID PRN #1 hfa.aer.ad PRN Reason: Shortness Of Breath Fluticasone/Salmeterol [Advair 250-50 Diskus] 1 each IH BID #1 disk.w.dev Metoprolol Tartrate [Lopressor*] 12.5 mg PO BID #60 tab predniSONE [Deltasone*] 10 mg PO SEECOM #15 tab Patient Discharge Instructions: 1. Recommend follow up with his PCP in 1 week to follow up this hospitalization. 2. Patient presented with fatigue, shortness of breath. Patient evaluated in the emergency room. Patient found with mild COPD exacerbation and acute renal injury with dehydration. Patient with underlying non-small cell lung cancer with known 2.7 cm spiculated mass to the posterior right apex. Patient has received chemotherapy in the past. He has been followed at [facility]. Patient also with extensive COPD changes. Patient was admitted for observation. Patient received IV fluids with improvement of renal function. Room-air saturations within normal range. No evidence of infectious process noted. At discharge his without any significant shortness of breath. Patient will continue with prednisone 10 mg 1 pill twice daily for 5 days then 1 p.o. once daily for 5 days. For his COPD, I will recommend to continue with COPD medication-Advair 1 puff twice daily and pro air 2 puffs 3 times a day as needed for shortness of breath. Patient plans to follow up with his oncologist tomorrow for further monitoring of his lung cancer. Patient may benefit with pulmonology follow up to further monitor his COPD. 3. Patient with acute renal injury likely from dehydration. Encourage oral intake. Renal function improved with IV fluids. Recommend to recheck lab-BMP in 1 week to monitor his progress. Encourage oral intake at discharge. 4. Patient with chronic pain. Patient seen by pain management. Patient may continue with his current medication. Patient plans to follow up with pain management to further monitor and adjust his medication. 5. Patient with hypothyroidism. At discharge to continue with his medication. 6. Patient with GERD. Patient will continue with his medication. 7. Patient with history of TIA. Patient may continue with aspirin 81 mg daily. 8. Patient had elevated blood pressure suspect hypertension. Metoprolol 2.5 mg 1 pill twice daily was added. Blood pressure better controlled with medication. At discharge patient will continue with metoprolol 12.5 mg twice daily. Recommend to maintain blood pressures was 150/80. Further adjustment to be done by his PCP. Patient may need to hold metoprolol if blood pressure less than 120 systolic or heart rate less than 55. Diet: AHA Activity: Fall precautions Time spent managing pt's care (in minutes): 55
== END 2018-09-20 14:20 | disposition home or self-care (01) ==
LOC: ER 09:24 → ERHOLD 14:59 → 2ND 18:18
PROVIDERS: ADMIT Family Medicine; ATTEND Family Medicine
DX: J44.1 Chronic obstructive pulmonary disease with (acute) exacerbation (principal); N17.9 Acute kidney failure, unspecified; E86.0 Dehydration; C34.90 Malignant neoplasm of unspecified part of unspecified bronchus or lung; E03.9 Hypothyroidism, unspecified; G89.29 Other chronic pain; F17.210 Nicotine dependence, cigarettes, uncomplicated; R53.83 Other fatigue; K21.9 Gastro-esophageal reflux disease without esophagitis; I10 Essential (primary) hypertension; Z86.73 Personal history of transient ischemic attack (TIA), and cerebral infarction without residual deficits
CPT/HCPCS: 93005; 87040 ×2; 85025 ×2; 80048; 36415; 83735 ×2; 83605 ×2; 84484; 83690; 80053; 84145; 83880; 71275; 71045; 71046; 97163; 94640 ×2; 96375; 96374; 99285; Q9967; J2270 ×2; J7605; J0696; J7030 ×2; J2405 ×3; G0378 ×2; J0360; J1650; J7512